=== PATIENT | female | born 1965 | race Caucasian/White ===

== ENCOUNTER 2016-10-16 07:01 | Day surgery (SDC) | payer BC ==
[~2016-10-16 07:01] MED LIST: ACETAMINOPHEN 1,000 MG/100 ML BTL IV ONE; FAMOTIDINE 20MG TABLET PO ONE; MECLIZINE 25 MG TABLET PO ONE; METOCLOPRAMIDE 10 MG TABLET PO ONE
[2016-10-16] MEDS ORDERED: IBUPROFEN 600 MG TABLET PO ONE (13:51)
[2016-10-16] MEDS ORDERED: BUPIVACAINE 0.25% W/EPI MPF 30ML VIAL IVP ONE (13:51)
[2016-10-16] MEDS ORDERED: HYDROMORPHONE HCL 2 MG/ML VIAL IV ONE (14:00)
[2016-10-16] MEDS ORDERED: ROCURONIUM BROMIDE 50MG/5ML VIAL IV ONE (14:00)
[2016-10-16] MEDS ORDERED: SUCCINYLCHOLINE 20 MG/ML 10ML IVP ONE (14:00)
[2016-10-16] MEDS ORDERED: LIDOCAINE 2% MDV (20MG/ML) 20ML VIAL IV ONE (14:00)
[2016-10-16] MEDS ORDERED: PROPOFOL 10 MG/ML VIAL IV ONE (14:00)
[2016-10-16] MEDS ORDERED: ONDANSETRON HCL IV 4 MG/2 ML VIAL IVP ONE (14:00)
--- NOTE | 2016-10-19 10:30 | Operative Note ---
DATE OF SURGERY: 10/16/2016 Surgeon: Kendell Gregory DO PREOPERATIVE DIAGNOSIS: Cholelithiasis and chronic cholecystitis. POSTOPERATIVE DIAGNOSIS: Cholelithiasis and chronic cholecystitis. OPERATION: Laparoscopic cholecystectomy. Indication: The patient is a 50-year-old female who is having ongoing right subcostal postprandial pain. Workup including ultrasound did reveal cholelithiasis without evidence of acute cholecystitis. We did discuss cholecystectomy versus medical management. She desired surgical intervention. Risks include but are not limited to bleeding, infection, ductal injury, possible conversion to open, postoperative bile leak. She understood this fully. Thereafter, consent signed, questions answered. PROCEDURE: The patient was taken to the operating room and placed in a supine position. General anesthesia was administered per the department of anesthesia. The patient's abdomen was prepped and draped in the usual fashion. The infraumbilical region was anesthetized with a total of 3 mL of 0.25% Sensorcaine with epinephrine. A 3 cm infraumbilical incision was made. This was carried down through copious amounts of scar tissue to the anterior rectus fascia. This was incised. Jayne clamps were placed on the fascial edges and brought up into the wound. Stay sutures of 0 Vicryl were placed. Posterior rectus sheath was identified and incised. The peritoneal cavity was entered bluntly. At this time a 10 mm blunt Chris port was placed. Adequate pneumoperitoneum was established. Under direct visualization, additional 5 mm epigastric and two 5 mm right subcostal ports were placed. The gallbladder was identified in the subhepatic space. It was lifted in a cephalad and lateral direction over the angle of Calot. The hepatocystic triangle was thoroughly dissected out. There was no aberrant anatomy, no posterior ductal structures. There were only two structures remaining; the cystic duct and cystic artery. Each one was doubly clipped and cut in a standard fashion. Gallbladder was then taken off the liver bed with Misha harmonic. Of note, she had fairly significant edema in the gallbladder itself. Once this was dissected off the liver bed, it was extracted through the infraumbilical port. Right upper quadrant was then rechecked and found to be hemostatic. No bleeding. No bile leak. No bowel injury noted. The patient was leveled out. The pneumoperitoneum was released. All ports were removed. The fascia was closed with 0 Vicryl in a [id number] fashion. The skin at all ports was closed with 4-0 Vicryl. She was taken to the recovery room in satisfactory condition FINDINGS AT THE TIME OF SURGERY: Chronic cholecystitis. CC: AMILCAR Torres
== END 2016-10-16 10:18 | disposition home or self-care (01) ==
LOC: SUR 07:01
PROVIDERS: ATTEND Surgery
DX: K80.10 Calculus of gallbladder with chronic cholecystitis without obstruction (principal); E78.00 Pure hypercholesterolemia, unspecified
CPT/HCPCS: 47562; 00790; J1170; J0330; J2405